=== PATIENT | male | born 1960 | race Caucasian/White ===

== ENCOUNTER 2017-02-23 10:16 | Day surgery (SDC) | payer BC ==
[2017-02-23] MEDS ORDERED: Sodium Bicarbonate 8.4% IV* 50 ML VIAL ONE (10:45)
[2017-02-23] MEDS ORDERED: Bupivacaine 0.25% SDV* 30 ML ONE (10:45)
[2017-02-23 11:39] VITALS: BP 125/83
--- NOTE | 2017-02-24 02:30 | OP ---
DATE OF OPERATION: 02/23/17 - [facility] DATE OF : 58 SURGEON: Saul Villarreal MD CSR TECHNICIAN: ARNALDO Julien ANESTHESIOLOGIST: None. ANESTHESIA: Local only with digital block performed via 0.25% Marcaine. PRE-OPERATIVE DIAGNOSIS: Right ring finger retained foreign body. POST-OPERATIVE DIAGNOSIS: Right ring finger retained foreign body. OPERATIVE PROCEDURE: Removal of foreign body, right ring finger. ESTIMATED BLOOD LOSS: 1 mL. COMPLICATIONS: None. FINDINGS: 3 mm greenish in coloration foreign body of most likely wood with multiple longitudinal segments. INDICATIONS: Kamran is a 56-year-old male who few weeks ago got some organic material into the right ring finger. It came and just off the ulnar aspect and rest end was in the volar soft tissue just distal to the DIP joint flexure crease. Initially, he had some infection that resolved with antibiotics, but he is left with a hard nodule underneath the skin. It was mobile and in the subcutaneous tissue. We talked about the risks and benefits and the decided to proceed with removal of foreign body. DESCRIPTION OF PROCEDURE: Kamran was seen in the preoperative holding area. The correct site, side, and procedure were identified. We had a time-out and then I anesthetized the finger with a digital block performed via 0.25% plain Marcaine. The patient was then brought back to the operating room where the arm was prepped and draped in the usual fashion and a formal time-out was performed. A Tourni-Cot was applied. I then made a 3 or 4 mm transverse incision right overlying the foreign body. A couple of single-pronged skin hooks were placed. I used the [place] blade to release the soft tissue and the foreign body was visualized. It was darker structure in the finger. I incised the soft tissue longitudinally over the foreign body and then removed it with the -Villa pickups. This came out cleanly in one piece. I then irrigated out the wound. I explored the area to make sure there was no more retained material. It was absolutely clean, so I went ahead and irrigated out again and closed the skin with two 5-0 nylon simple interrupted sutures. The Tourni-Cot was released. The finger pinked up immediately. The wound was dressed with Xeroform, some 1- inch Chika, and a loose Coban wrap. He was then taken to recovery room in stable condition. [id number]/[facility] #: [id number] ADI
== END 2017-02-23 11:35 | disposition home or self-care (01) ==
LOC: OREAST 10:16
PROVIDERS: ATTEND Orthopaedic Surgery Hand Surgery
DX: S61.244A Puncture wound with foreign body of right ring finger without damage to nail, initial encounter (principal); Z87.891 Personal history of nicotine dependence; S60.454A Superficial foreign body of right ring finger, initial encounter; W45.8XXA Other foreign body or object entering through skin, initial encounter; Y93.89 Activity, other specified; Y92.9 Unspecified place or not applicable; Y99.0 Civilian activity done for income or pay
CPT/HCPCS: 88300

== ENCOUNTER 2017-11-10 13:19 | Emergency (ER) | payer BC ==
[2017-11-10 13:27] VITALS: BP 158/86
== END 2017-11-10 14:45 | disposition left against medical advice (07) ==
LOC: ED 13:19
DX: R07.0 Pain in throat (principal); Z53.21 Procedure and treatment not carried out due to patient leaving prior to being seen by health care provider